=== PATIENT | male | born 1950 | race Hispanic/Latino ===

== ENCOUNTER 2020-08-06 18:40 | Emergency (ER) | payer SELFPAY ==
[~2020-08-06 18:40] MED LIST: EPINEPHrine 1 MG/10 ML Abboject SYRINGE ONE
== END 2020-08-06 20:50 | disposition expired ==
LOC: NAV ERS 18:40
DX: I46.9 Cardiac arrest, cause unspecified (principal)
CPT/HCPCS: 92950; J0171